=== PATIENT | male | born 1970 | race Two or more races ===

== ENCOUNTER 2016-12-22 13:03 | Emergency (ER) | payer OTHER, BC ==
[2016-12-22 13:08] VITALS: BP 148/89; PULSE 85; TEMP 98.2; BMI 28.2
[2016-12-22] MEDS ORDERED: IBUPROFEN 400 MG TABLET (FP) PO ONE ×2 (13:39→13:42)
--- NOTE | 2016-12-22 13:42 | PDOC ---
History of Present Illness - General Chief Complaint: Pain, Acute Stated Complaint: RT SHOULDER/ARM PAIN Time Seen by Provider: 12/22/16 13:23 History Source: Patient - History of Present Illness Occurred: reports: other Severity: reports: moderate Upper Extremity Pain Location: right: shoulder Past History - Past Medical History Allergies/Adverse Reactions: Allergies Allergy/AdvReac Type Severity Reaction Status Date / Time No Known Allergies Allergy Verified 12/22/16 13:06 Home Medications: Ambulatory Orders Unobtainable [Unobtainable] 12/22/16 Other medical history: DENIES. - Surgical History Abdominal Surgery: Yes Appendectomy: Yes - Suicide/Smoking/Psychosocial Hx Smoking History: Never smoked Hx Alcohol Use: No Drug/Substance Use Hx: No Substance Use Type: None Review of Systems - Review of Systems Constitutional: No: Chills, Fever Musculoskeletal: Yes: Joint Pain. No: Joint Swelling *Physical Exam - Vital Signs Last Vital Signs Temp Pulse Resp BP Pulse Ox 98.2 F 85 18 148/89 99 12/22/16 13:05 12/22/16 13:05 12/22/16 13:05 12/22/16 13:05 12/22/16 13:05 - Physical Exam General Appearance: Yes: Appropriately Dressed. No: Apparent Distress HEENT: positive: Normal Voice Neck: positive: Supple Respiratory/Chest: negative: Respiratory Distress Extremity: positive: Normal Inspection, Normal Range of Motion, Tender (to anterior R shoulder, no swelling, FROM, strength 5/5 b/l) Integumentary: positive: Dry, Warm Neurologic: positive: Fully Oriented, Alert, Normal Mood/Affect Medical Decision Making - Medical Decision Making 12/22/16 13:40 46-year-old male denies any past medical history here with right shoulder pain after heavy lifting at work several days ago. Cries pain is achy, constant and worse with movement. Has not taken anything for symptoms. See exam Shoulder strain No e/o serious injury at this time -dc w/ OTC pain meds -pmd f/u for persistent sxs *DC/Admit/Observation/Transfer Diagnosis at time of Disposition: Sprain of shoulder, right Qualifiers: Encounter type: initial encounter Shoulder sprain type: unspecified sprain Qualified Code(s): S43.401A - Unspecified sprain of right shoulder joint, initial encounter; S43.401A - Unspecified sprain of right shoulder joint, initial encounter - Discharge Dispostion Disposition: HOME Condition at time of disposition: Good - Patient Instructions Printed Discharge Instructions: DI for Shoulder Sprain Additional Instructions: Take 800mg motrin every 6 hrs for pain Please follow-up with your PMD if pain persists - Post Discharge Activity Forms/Work/School Notes: Back to Work
== END 2016-12-22 13:49 | disposition home or self-care (01) ==
LOC: SUPCPDRO 13:03 → JERFT 13:03
DX: S43.401A Unspecified sprain of right shoulder joint, initial encounter (principal); X50.0XXA Overexertion from strenuous movement or load, initial encounter; Y93.89 Activity, other specified; Y92.63 Factory as the place of occurrence of the external cause; Y99.0 Civilian activity done for income or pay
CPT/HCPCS: 99281-25

== ENCOUNTER 2017-06-10 10:54 | Emergency (ER) | payer OTHER ==
[2017-06-10 11:04] VITALS: BP 135/83; PULSE 98; TEMP 98.4; BMI 29.0
--- NOTE | 2017-06-10 11:43 | PDOC ---
History of Present Illness - General Chief Complaint: Pain Stated Complaint: LT SHOULDER PAIN Time Seen by Provider: 06/10/17 11:13 History Source: Patient Exam Limitations: No Limitations - History of Present Illness Initial Comments: 06/10/17 11:39 this is a 46yo man without significant PMH who presents to ED with left shoulder pain after trying to lift a locked roll away door. Patient states he "yanked" up on the door with his arms fully extended and felt a sharp pain to the front of his left shoulder. He rates pain 6/10 after taking Aleve. He denies striking his shoulder or falling onto the shoulder. Past History - Past Medical History Allergies/Adverse Reactions: Allergies Allergy/AdvReac Type Severity Reaction Status Date / Time No Known Allergies Allergy Verified 06/10/17 11:04 Home Medications: Ambulatory Orders NK [No Known Home Medication] 06/10/17 COPD: No - Surgical History Abdominal Surgery: Yes Appendectomy: Yes - Suicide/Smoking/Psychosocial Hx Smoking History: Never smoked Hx Alcohol Use: No Drug/Substance Use Hx: No Substance Use Type: None Review of Systems - Review of Systems Able to Perform ROS?: Yes Is the patient limited Serbian proficient: No Constitutional: No: Symptoms Reported HEENTM: No: Symptoms Reported Respiratory: No: Symptoms reported Cardiac (ROS): No: Symptoms Reported ABD/GI: No: Symptoms Reported : No: Symptoms Reported Musculoskeletal: Yes: See HPI Integumentary: No: Symptoms Reported Neurological: No: Symptoms reported *Physical Exam - Vital Signs Last Vital Signs Temp Pulse Resp BP Pulse Ox 98.4 F 98 H 18 135/83 98 06/10/17 11:00 06/10/17 11:00 06/10/17 11:00 06/10/17 11:00 06/10/17 11:00 - Physical Exam General Appearance: Yes: Appropriately Dressed. No: Apparent Distress HEENT: positive: Normal ENT Inspection Neck: positive: Trachea midline, Supple Respiratory/Chest: positive: Lungs Clear, Normal Breath Sounds. negative: Respiratory Distress, Accessory Muscle Use Cardiovascular: positive: Regular Rhythm, Regular Rate. negative: Murmur Gastrointestinal/Abdominal: positive: Normal Bowel Sounds, Soft. negative: Tender Musculoskeletal: positive: Normal Inspection. negative: Decreased Range of Motion Extremity: positive: Normal Inspection, Normal Range of Motion, Tender (to anterior capsule of left shoulder) Integumentary: positive: Normal Color, Dry, Warm Neurologic: positive: Fully Oriented, Alert, Normal Response, Motor Strength 5/ 5. negative: Numbness, Sensory Deficit ED Treatment Course - RADIOLOGY Radiology Studies Ordered: Category Date Time Status SHOULDER-LEFT [RAD] Stat Radiology 06/10/17 11:38 Ordered Medical Decision Making - Medical Decision Making 06/10/17 11:43 A/P: 46yo man with left shoulder pain TTP at anterior capsule of left shoulder Full passive ROM 5/5 sr account executive strength 2+ radial pulses cap refill <2sec xrays patient refusing pain medication at this time reassess 06/10/17 12:37 Xray as read by me: slight AC separation. No fracture present. Sling discharge *DC/Admit/Observation/Transfer Diagnosis at time of Disposition: Sprain of shoulder, left Qualifiers: Encounter type: initial encounter Shoulder sprain type: other part of shoulder region Qualified Code(s): S43.492A - Other sprain of left shoulder joint, initial encounter - Discharge Dispostion Disposition: HOME Condition at time of disposition: Stable Admit: No - Referrals Referrals: Dimas Johnston [Primary Care Provider] - Iron Monet MD [Staff Physician] - - Patient Instructions Printed Discharge Instructions: How to Use a Sling Additional Instructions: Take Tylenol or Motrin as needed for pain. Follow engineer process's instruction for dosage. Use sling at all times for the next 3 dyas. You have been given a recommendation for an orthopedist. Please call for an appointment for re-evaluation. Return to ER for weakness, numbness, tingling, discoloration of fingers or any other concerns. - Post Discharge Activity
== END 2017-06-10 12:52 | disposition home or self-care (01) ==
LOC: JERFT 10:54
DX: S43.492A Other sprain of left shoulder joint, initial encounter (principal); X50.0XXA Overexertion from strenuous movement or load, initial encounter; Y93.89 Activity, other specified; Y92.69 Other specified industrial and construction area as the place of occurrence of the external cause; Y99.0 Civilian activity done for income or pay
CPT/HCPCS: 73030-TC-LT-FY; 99281-25

== ENCOUNTER 2017-06-30 14:22 | Emergency (ER) | payer OTHER ==
--- NOTE | 2017-06-30 14:29 | PDOC ---
Rapid Medical Evaluation Chief Complaint: Injury Time Seen by Provider: 06/30/17 14:28 Medical Evaluation: Allergies Allergy/AdvReac Type Severity Reaction Status Date / Time No Known Allergies Allergy Verified 06/10/17 11:04 06/30/17 14:29 I have performed a brief in-person evaluation of this patient. The patient presents with a chief complaint of: left shoulder pain "i feel something stretching when i try to move the arm" Pertinent physical exam findings: well appearing, full ROM I have ordered the following: nothing The patient will proceed to the ED for further evaluation. Discharge Disposition - Referrals Referrals: Dimas Johnston [Primary Care Provider] - - Patient Instructions - Post Discharge Activity
[2017-06-30 14:33] VITALS: BP 128/76; PULSE 88; TEMP 98.2; BMI 29.0
--- NOTE | 2017-06-30 15:39 | PDOC ---
History of Present Illness - General Chief Complaint: Injury Stated Complaint: JOB INJURY Time Seen by Provider: 06/30/17 14:28 History Source: Patient Exam Limitations: No Limitations - History of Present Illness Initial Comments: 06/30/17 15:46 This a 46-year-old gentleman without significant past medical history who presents emergency Department with continued left shoulder pain status post accident at work. Patient was seen and evaluated here on 06/10 when he initially sustaining the injury. At that time he was moving a rollaway door when the door stuck causing an abrupt stop and movements causing pain in his left shoulder. At that time x-rays were negative patient was instructed to follow-up with an orthopedic surgeon. He states he tried to contact the orthopedic surgeon he was referred to but that surgeon did not take Worker's Comp. concerns. Patient was in contact with his Worker's Comp. office today who will call him back with the name of an orthopedic surgeon in the area. Upper Extremity Pain Location: left: shoulder Method of Injury: reports: other Past History - Past Medical History Allergies/Adverse Reactions: Allergies Allergy/AdvReac Type Severity Reaction Status Date / Time No Known Allergies Allergy Verified 06/30/17 14:29 Home Medications: Ambulatory Orders Methocarbamol [Robaxin -] 1,500 mg PO Q8H #30 tablet 06/30/17 COPD: No - Surgical History Abdominal Surgery: Yes Appendectomy: Yes - Suicide/Smoking/Psychosocial Hx Smoking History: Never smoked Have you smoked in the past 12 months: No Information on smoking cessation initiated: No Hx Alcohol Use: No Drug/Substance Use Hx: No Substance Use Type: None Review of Systems - Review of Systems Able to Perform ROS?: Yes Is the patient limited Burmese proficient: No Constitutional: No: Symptoms Reported HEENTM: No: Symptoms Reported Respiratory: No: Symptoms reported Cardiac (ROS): No: Symptoms Reported ABD/GI: No: Symptoms Reported : No: Symptoms Reported Musculoskeletal: Yes: See HPI Integumentary: No: Symptoms Reported Neurological: No: Symptoms reported Endocrine: No: Symptoms Reported Hematologic/Lymphatic: No: Symptoms Reported *Physical Exam - Vital Signs Last Vital Signs Temp Pulse Resp BP Pulse Ox 98.2 F 88 16 128/76 100 06/30/17 14:29 06/30/17 14:29 06/30/17 14:29 06/30/17 14:29 06/30/17 14:29 - Physical Exam General Appearance: Yes: Appropriately Dressed. No: Apparent Distress HEENT: positive: Normal ENT Inspection Neck: positive: Trachea midline, Supple, Other (Palpable muscle spasm to the left sternocleidomastoid and left trapezius) Respiratory/Chest: positive: Lungs Clear, Normal Breath Sounds. negative: Respiratory Distress, Accessory Muscle Use Cardiovascular: positive: Regular Rhythm, Regular Rate. negative: Murmur Gastrointestinal/Abdominal: positive: Normal Bowel Sounds, Soft. negative: Tender Musculoskeletal: positive: Normal Inspection, Muscle Spasm (Left sternoclavicular mastoid and left trapezius). negative: CVA Tenderness Extremity: positive: Normal Inspection. negative: Normal Range of Motion ( Decreased range of motion with adduction) Integumentary: positive: Normal Color, Dry, Warm Neurologic: positive: Alert, Normal Response Medical Decision Making - Medical Decision Making 06/30/17 15:48 A/P: 46-year-old male with continued left shoulder pain status post injury at work Palpable muscle spasm in the left sternocleidomastoid and left trapezius. Decreased range of motion with right lateral rotation of the neck Increased pain with right lateral rotation of the neck Full left lateral rotation noted without pain Full extension and flexion of neck noted without pain Adduction of left shoulder decreased to less than 90 Given palpable muscle spasms I will treat the patient with Robaxin as an outpatient. Patient instructed not to operate heavy machinery or drive while taking this medication. Patient instructed to call his Worker's Compensation insurance for referral for orthopedic surgeon. Patient verbalizes understanding of discharge instructions. 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 Take Robaxin 1500 mg 3 times a day as needed for pain. Follow-up with her primary doctor or a primary doctor who accepts Worker's Comp. for continued evaluation of this pain. Return to emergency department for any concerns - Post Discharge Activity Forms/Work/School Notes: Back to Work
== END 2017-06-30 15:43 | disposition home or self-care (01) ==
LOC: JERFT 14:22
DX: M62.838 Other muscle spasm (principal); X50.0XXD Overexertion from strenuous movement or load, subsequent encounter
CPT/HCPCS: 99281-25

== ENCOUNTER 2017-07-14 14:38 | Emergency (ER) | payer OTHER ==
[2017-07-14 14:55] VITALS: BP 127/72; PULSE 83; TEMP 98.2; BMI 29.0
--- NOTE | 2017-07-14 15:44 | PDOC ---
History of Present Illness - General Chief Complaint: Injury Stated Complaint: LT ARM PAIN Time Seen by Provider: 07/14/17 15:01 - History of Present Illness Initial Comments: 46 room now presents for evaluation for left shoulder pain. He states while at work about 3 weeks ago he was pulling down the door of the truck closing it injuring his left shoulder points to the anterior lateral aspect of the left upper arm as the area of his discomfort is describes this pain as achy exacerbated with motion relieved with rest free of radiation he does have a history of a prior shoulder problem which is similar in etiology and she will but never followed up with orthopedics as advised. 07/14/17 15:39 Past History - Past Medical History Allergies/Adverse Reactions: Allergies Allergy/AdvReac Type Severity Reaction Status Date / Time No Known Allergies Allergy Verified 07/14/17 14:51 Home Medications: Ambulatory Orders Methocarbamol [Robaxin -] 1,500 mg PO Q8H #30 tablet 06/30/17 COPD: No Other medical history: DENIES. - Surgical History Abdominal Surgery: Yes Appendectomy: Yes - Suicide/Smoking/Psychosocial Hx Smoking History: Never smoked Have you smoked in the past 12 months: No Hx Alcohol Use: No Drug/Substance Use Hx: No Substance Use Type: None Review of Systems - Review of Systems Comments:: 07/14/17 15:40 GENERAL/CONSTITUTIONAL: [No fever or chills. No weakness. No weight change.] HEAD, EYES, EARS, NOSE AND THROAT: [No change in vision. No ear pain or discharge. No sore throat.] CARDIOVASCULAR: [No chest pain or shortness of breath.] RESPIRATORY: [No cough, wheezing, or hemoptysis.] GASTROINTESTINAL: [No nausea, vomiting, diarrhea or constipation. No rectal bleeding.] GENITOURINARY: [No dysuria, frequency, or change in urination.] MUSCULOSKELETAL: [+ L shoulder pain no other joint or muscle swelling or pain. No neck or back pain.] SKIN AND BREASTS: [No rash or easy bruising.] NEUROLOGIC: [No headache, vertigo, loss of consciousness, or loss of sensation.] PSYCHIATRIC: [No depression or anxiety.] ENDOCRINE: [No increased thirst. No abnormal weight change.] HEMATOLOGIC/LYMPHATIC: [No anemia, easy bleeding, or history of blood clots.] ALLERGIC/IMMUNOLOGIC: [No hives or skin allergy. No latex allergy.] *Physical Exam - Vital Signs Last Vital Signs Temp Pulse Resp BP Pulse Ox 98.2 F 83 19 127/72 99 07/14/17 14:51 07/14/17 14:51 07/14/17 14:51 07/14/17 14:51 07/14/17 14:51 - Physical Exam Comments: Shoulder skin color and temperature are normal. There is full range of motion WITH PAIN 5 out of 5 strength. 5 out of 5 strength supraspinatus isolation. POSITIVE impingement maneuvers. No evidence of instability. Normal cervical spine exam with negative Spurling maneuver. 07/14/17 15:40 ED Treatment Course - RADIOLOGY Radiology Studies Ordered: Category Date Time Status SHOULDER-LEFT [RAD] Stat Radiology 07/14/17 15:38 Ordered Medical Decision Making - Medical Decision Making Shoulder x-ray shows no evidence of fracture or trauma there is mild to moderate before meals arthritis 07/14/17 16:05 *DC/Admit/Observation/Transfer Diagnosis at time of Disposition: Shoulder impingement syndrome - Discharge Dispostion Disposition: HOME Condition at time of disposition: Stable Decision to Admit order: No - Referrals Referrals: Dimas Johnston [Primary Care Provider] - Jesus White MD [Staff Physician] - - Patient Instructions Printed Discharge Instructions: Shoulder Tendinopathy, DI for Shoulder Tendinopathy - Post Discharge Activity
== END 2017-07-14 16:14 | disposition home or self-care (01) ==
LOC: JERFT 14:38
DX: M25.812 Other specified joint disorders, left shoulder (principal); X50.0XXA Overexertion from strenuous movement or load, initial encounter; Y93.89 Activity, other specified; Y92.69 Other specified industrial and construction area as the place of occurrence of the external cause; Y99.0 Civilian activity done for income or pay
CPT/HCPCS: 73030-TC-LT-FY; 99281-25

== ENCOUNTER 2018-01-17 13:48 | Emergency (ER) | payer BC, OTHER ==
[2018-01-17 14:24] VITALS: TEMP 98.6; BMI 29.0
--- NOTE | 2018-01-17 14:32 | PDOC ---
History of Present Illness - General Chief Complaint: Pain, Acute Stated Complaint: ABD PAIN, NAUSEA Time Seen by Provider: 01/17/18 14:31 History Source: Patient Exam Limitations: No Limitations - History of Present Illness Initial Comments: 01/17/18 14:52 This is a 47 year old male with no known medical history except appendectomy, who presents with nausea, NBNB vomiting and diarrhea and severe abdominal pain x1 day after eating [place] food. RUQ sharp pain, non radiating, 10/10. Endores tremors. Denies fever, sob, chest pain, dysuria, hematuria, diaz, sick contacts. PMHx: appendicitis PSHx: appendectomy Social hx: denies alcohol, tobacco drug use. NKDA Past History - Past Medical History Allergies/Adverse Reactions: Allergies Allergy/AdvReac Type Severity Reaction Status Date / Time No Known Allergies Allergy Verified 01/17/18 14:20 Home Medications: Ambulatory Orders Ciprofloxacin [Cipro -] 500 mg PO Q12H 7 Days #14 tablet 01/17/18 Oxycodone HCl/Acetaminophen [Percocet 5-325 mg Tablet] 1 tab PO Q6H PRN #12 tablet MDD 4 tabs 01/17/18 metroNIDAZOLE [Flagyl -] 500 mg PO Q8H 7 Days #28 tablet 01/17/18 COPD: No - Surgical History Abdominal Surgery: Yes Appendectomy: Yes - Suicide/Smoking/Psychosocial Hx Smoking History: Never smoked Have you smoked in the past 12 months: No Hx Alcohol Use: No Drug/Substance Use Hx: No Substance Use Type: None Review of Systems - Review of Systems Able to Perform ROS?: Yes Is the patient limited Puerto Rican proficient: No Constitutional: Yes: Chills, Loss of Appetite. No: Fever HEENTM: No: Blurred Vision, Nose Congestion, Throat Swelling, Difficulty Swallowing Respiratory: No: Cough, Orthopnea, Shortness of Breath, SOB with Exertion Cardiac (ROS): No: Chest Pain, Edema, Irregular Heart Rate, Lightheadedness ABD/GI: Yes: Diarrhea, Nausea, Poor Appetite, Poor Fluid Intake, Vomiting, Abdominal cramping, Other (RUQ pain). No: Abdominal Distended, Abd. Pain w/ defecation : No: Burning, Dysuria, Discharge Musculoskeletal: No: Back Pain Integumentary: No: Bruising, Flushing Neurological: No: Headache, Numbness Endocrine: No: Excessive Sweating, Flushing *Physical Exam - Vital Signs Last Vital Signs Temp Pulse Resp BP Pulse Ox 98.6 F 64 20 140/92 98 01/17/18 14:22 01/17/18 14:22 01/17/18 14:22 01/17/18 14:22 01/17/18 14:22 - Physical Exam General Appearance: Yes: Appropriately Dressed HEENT: positive: Pharynx Normal, Other (dry mucus membranes) Respiratory/Chest: positive: Lungs Clear, Normal Breath Sounds. negative: Chest Tender Cardiovascular: positive: Regular Rhythm, Regular Rate, S1, S2 Gastrointestinal/Abdominal: positive: Normal Bowel Sounds, Tender (severe RUQ tendernes to palpation; Neri +), Tenderness Lymphatic: negative: Adenopathy Musculoskeletal: negative: CVA Tenderness Extremity: positive: Normal Inspection Neurologic: positive: Fully Oriented, Normal Mood/Affect ED Treatment Course - LABORATORY CBC & Chemistry Diagram: 01/17/18 14:42 01/17/18 14:42 Medical Decision Making - Medical Decision Making 01/17/18 15:13 This is a 47 year old male with hx of appendectomy, who presents with N, V, D, RUQ pain after eating [place] food last night. R/o acute pathology including acute cholecystitis, pancreatitis, diverticulitis, liver abnormalities, vs acute viral gastroenteritis. #n/v/d/abdominal pain: -cbc, cmp, lipase -abdominal ultrasound 01/17/18 18:19 - 01/17/18 18:21 Abdominal ultrasound: An approximately 1.7 cm calculus is seen in the region of the gallbladder neck. There is mild diffuse gallbladder wall thickening. No pericholecystic fluid is noted. The gallbladder appears mildly overdistended. The cardiac cath lab radiology technologist reports a positive sonographic Neri sign. There is diffuse fatty infiltration of the liver. The liver appears borderline in overall size. No obvious mass lesion is noted. The common bile duct diameter demonstrates no discrete abnormality measuring 0.5 cm. No gross intraductal calculus is noted within the limitations of sonography. No free intraperitoneal fluid is identified. The pancreas could not be visualized due to obscuring bowel gas. There is no right hydronephrosis. The right kidney demonstrates no obvious sonographic abnormality. Impression: Cholelithiasis is noted with associated mild diffuse wall thickening and mild overdistention - ? acute cholecystitis. The cardiac cath lab radiology technologist reports a positive sonographic Neri sign. Additional imaging as clinically indicated. There is no definite biliary tract dilatation. Diffuse hepatic steatosis. 01/17/18 18:22 -Acute cholecystitis: -patient does not want to be admitted to hospital -will send home on antibiotics levo/flagyl and pain medication -made appt with Dr. Hanson for follow up on 01/19/18 at 10am. Also discussed f/ u with primary. -advise to return to the hospital if any worsening of symptoms; including fever , intractable vomiting, worsening pain *DC/Admit/Observation/Transfer Diagnosis at time of Disposition: Acute cholecystitis - Discharge Dispostion Disposition: HOME Condition at time of disposition: Improved Decision to Admit order: No - Referrals Referrals: Dimas Johnston [Primary Care Provider] - Jesus Hanson MD [Staff Physician] - - Patient Instructions Printed Discharge Instructions: Gallstones Additional Instructions: Mr. Davis, you have been diagnosed with acute cholecystitis, which is an inflammation of your gallbladder. YOu also have a large stone in your gallbladder. Please take the prescribed medications as directed. We also made an appointment for you with a surgeon to be evaluated, on Wednesday at 10am. If you experience any worsening of symptoms, including fever, chills, intractable vomiting, worsening abdominal pain, please return to the emergency room. Please follow up with your primary as soon as possible as well. - Post Discharge Activity
[2018-01-17] MEDS ORDERED: ONDANSETRON 4 MG/2 ML VIAL IVPB ONE (14:40)
[2018-01-17] MEDS ORDERED: SODIUM CHLORIDE 1,000 ML IV STA (14:41)
[2018-01-17] MEDS ORDERED: ONDANSETRON 4 MG/2 ML VIAL ONE (14:49)
[2018-01-17] MEDS ORDERED: morphine CARPU-JECT 4 MG/1 ML DISP.SYRIN IVPUSH ONE ×2 (14:50→16:28)
[2018-01-17] MEDS ORDERED: MORPHINE SULFATE 2 MG/ML VIAL ONE ×2 (14:59→17:44)
[2018-01-17 15:00] LABS: BASO % 0.7 % (0-2.0); EOS % 0.1 % (0-4.5); HEMATOCRIT 42.7 % (35.4-49); HEMOGLOBIN 14.5 GM/dL (11.7-16.9); LYMPH % 9.8 % (8-40); MCH 31.1 pg (25.7-33.7); MCHC 33.9 g/dl (32.0-35.9); MEAN CELL VOLUME 91.9 fl (80-96); MONO % 4.8 % (3.8-10.2); NEUT % 84.6 % (42.8-82.8); PLATELET COUNT 352 K/MM3 (134-434); RBC 4.64 M/mm3 (4.00-5.60); RDW 12.4 % (11.9-15.9); WHITE BLOOD COUNT 18.8 K/mm3 (4.0-10.0)
[2018-01-17 15:30] LABS: ALBUMIN 3.6 g/dl (3.4-5.0); ALK PHOS 79 U/L (45-117); ANION GAP 7 MMOL/L (8-16); BILIRUBIN,TOTAL 0.5 mg/dL (0.2-1); BLOOD UREA NITROGEN 17 mg/dL (7-18); CALCIUM 8.9 mg/dL (8.5-10.1); CHLORIDE 104 mmol/L (98-107); CO2 27 mmol/L (21-32); CREATININE 0.8 mg/dL (0.55-1.3); GLUCOSE,RANDOM 143 mg/dL (74-106); LIPASE 104 U/L (73-393); POTASSIUM 3.5 mmol/L (3.5-5.1); SGOT/AST 10 U/L (15-37); SGPT/ALT 17 U/L (13-61); SODIUM 138 mmol/L (136-145); TOT PROT 7.1 g/dl (6.4-8.2)
--- NOTE | 2018-01-17 16:26 | PDOC ---
Attending Attestation - HPI HPI: 01/17/18 16:29 This is a 47 year old male with a medical history significant for appendectomy, who presents with nausea, vomiting, diarrhea and RUQ abdominal pain since eating Lithuanian food last night. He denies radiation of pain. He denies blood in the emesis. PSHx: appendectomy Social hx: denies alcohol, tobacco drug use. NKDA - Physicial Exam PE: 01/17/18 16:29 Vitals: Triage vital signs reviewed General Appearance: No acute distress, well nourished, well developed Head: Atraumatic Eyes: Pupils equal reactive round, extraocular movement intact Neck: Supple; No nuchal rigidity Chest Wall: Nontender Cardiac: Regular rate and rhythm, no murmurs, no rubs, no gallops Lungs: Clear to auscultation bilateral, good air movement bilaterally Abdomen: (+) RUQ mildly ttp. Soft, nondistended, normal bowel sounds, Extremities: Full range of motion to all extremities, no cyanosis, clubbing, or edema Skin: Warm and dry, no rashes or lesions, no rash, no petechiae Neuro: AOX3; Cranial Nerves 2-12 grossly intact, Strength intact to all extremities, Sensation intact to all extremities, gait normal - Medical Decision Making 01/17/18 16:30 Documentation prepared by Mariann Kelly, acting as site medical director for Ronny Rios MD, <Mariann Kelly - Last Filed: 01/17/18 16:29> - Resident Resident Name: Trixie Donis - ED Attending Attestation I have performed the following: I have examined & evaluated the patient, The case was reviewed & discussed with the resident, I agree w/resident's findings & plan, Exceptions are as noted - Medical Decision Making Moderate to severe right upper quadrant pain. Labs ultrasound pending Dr. Dumont to follow-up results and reassess. <Ronny Rios - Last Filed: 01/17/18 16:38>
[2018-01-17 19:41] VITALS: BP 134/76; PULSE 65
== END 2018-01-17 19:27 | disposition home or self-care (01) ==
LOC: JER 13:48
PROC: 3E033NZ Introduction of Analgesics, Hypnotics, Sedatives into Peripheral Vein, Percutaneous Approach (ICD-10-PCS; principal; 2018-01-17)
PROC: 3E033NZ Introduction of Analgesics, Hypnotics, Sedatives into Peripheral Vein, Percutaneous Approach (ICD-10-PCS; 2018-01-17)
PROC: 3E033GC Introduction of Other Therapeutic Substance into Peripheral Vein, Percutaneous Approach (ICD-10-PCS; 2018-01-17)
DX: K80.00 Calculus of gallbladder with acute cholecystitis without obstruction (principal)
CPT/HCPCS: 36415; 76705-TC; 80053; 83690; 85025; 99283-25; J7030

== ENCOUNTER 2018-01-21 06:31 | Inpatient (IN) | payer BC ==
[2018-01-20 09:03] VITALS: BMI 29.0
--- NOTE | 2018-01-21 07:47 | HP ---
History & Physical Update - History History: No Change - Physical Physical: No Change - Assessment Assessment: No Change - Plan Plan: No Change
[2018-01-21] MEDS ORDERED: fentaNYL CITRATE 250 MCG/5 ML VIAL ONE (08:04)
[2018-01-21] MEDS ORDERED: MIDAZOLAM HCL 2 MG/2 ML SINGLE DOSE VIAL ONE ×2 (08:05)
[2018-01-21] MEDS ORDERED: PROPOFOL 20 ML ONE (08:11)
[2018-01-21] MEDS ORDERED: ROCURONIUM BROMIDE 50 MG/5 ML VIAL ONE ×2 (08:12→09:46)
[2018-01-21] MEDS ORDERED: BUPIVACAINE HCL/PF 0.5% (5MG/ML) 10 ML VIAL ONE (08:21)
[2018-01-21] MEDS ORDERED: ceFAZolin SODIUM 1 GM VIAL ONE (08:28)
[2018-01-21] MEDS ORDERED: DEXAMETHASONE SOD PHOSPHATE 4 MG/1 ML VIAL ONE (08:28)
[2018-01-21] MEDS ORDERED: ceFAZolin SODIUM 1 GM VIAL IVPB ONE (08:30)
[2018-01-21] MEDS ORDERED: BENZOIN TINCTURE SWABSTICK TP ONE (10:57)
[2018-01-21] MEDS ORDERED: ONDANSETRON 4 MG/2 ML VIAL IVPUSH PRN ×2 (11:30)
[2018-01-21] MEDS ORDERED: ACETAMINOPHEN 325 MG TABLET (FP) PO PRN (11:30)
[2018-01-21] MEDS ORDERED: oxyCODONE HCL 5 MG TABLET PO PRN ×2 (11:30)
--- NOTE | 2018-01-21 11:59 | OP ---
Operative Note - Note: Operative Date: 01/21/18 Pre-Operative Diagnosis: acute cholecystitis, cholelithiasis Operation: Laparoscopic cholecystectomy Post-Operative Diagnosis: Same as Pre-op Surgeon: Jesus Hanson Drupal Architect: Hillary Celis Anesthesiologist/JOB MOLDER: Reji Adam Anesthesia: General Specimens Removed: gallbladder Estimated Blood Loss (mls): 30 Drains & Tubes with Location: blanc RLQ Fluid Volume Replaced (mls): 1,800 Operative Report Dictated: Yes
[2018-01-21] MEDS: LACTATED RINGERS SOLUTION 1,000 ML IV SCH ×2 (12:00→20:10)
--- NOTE | 2018-01-21 12:00 | SURG ---
Surgery Anodiser Note Anodiser: Hillary Celis PA-C Date of Service: 01/21/18 Diagnosis: Acute cholecystitis, Cholelithiasis Procedure: laparoscopic cholecystectomy I was present for the entirety of the operative procedure. For further detail, please refer to operative report. Visit type - Case Type Case Type: Scheduled - Emergency Emergency Visit: No - New patient This patient is new to me today: Yes Date on this admission: 01/21/18
[2018-01-21] MEDS: HYDROmorphone HCl 2 MG/ML VIAL ONE ×3 (12:18→13:00)
[2018-01-21 12:39] LABS: BASO % 0.4 % (0-2.0); EOS % 0.4 % (0-4.5); HEMOGLOBIN 13.5 GM/dL (11.7-16.9); LYMPH % 12.8 % (8-40); MCH 31.3 pg (25.7-33.7); MCHC 33.6 g/dl (32.0-35.9); MEAN PLT VOLUME 7.5 fl (7.5-11.1); MONO % 1.3 % (3.8-10.2); NEUT % 85.1 % (42.8-82.8); PLATELET COUNT 335 K/MM3 (134-434); RDW 12.8 % (11.9-15.9); WHITE BLOOD COUNT 15.2 K/mm3 (4.0-10.0)
[2018-01-21] MEDS ORDERED: ACETAMINOPHEN 1000 MG/100 ML VIAL (NON FORMULARY) IVPB ONE (13:27)
[2018-01-21] MEDS ORDERED: ACETAMINOPHEN WITH CODEINE 300MG/30MG TABLET PO PRN (13:28)
[2018-01-21] MEDS ORDERED: HYDROmorphone HCL CARPU-JECT 2 MG/1 ML DISP.SYRIN IVPUSH ONE (14:22)
[2018-01-21] MEDS: HEPARIN NA (PORCINE) 5,000 UNITS/ML 1ML VIAL SQ SCH (21:15)
[2018-01-22] MEDS: LACTATED RINGERS SOLUTION 1,000 ML IV SCH (04:03)
[2018-01-22] MEDS: HEPARIN NA (PORCINE) 5,000 UNITS/ML 1ML VIAL SQ SCH ×3 (05:42→22:00)
[2018-01-22 07:50] LABS: BASO % 0.6 % (0-2.0); EOS % 0.9 % (0-4.5); HEMATOCRIT 35.9 % (35.4-49); LYMPH % 33.7 % (8-40); MCH 30.9 pg (25.7-33.7); MCHC 33.5 g/dl (32.0-35.9); MEAN CELL VOLUME 92.1 fl (80-96); MEAN PLT VOLUME 7.5 fl (7.5-11.1); MONO % 5.3 % (3.8-10.2); NEUT % 59.5 % (42.8-82.8); PLATELET COUNT 307 K/MM3 (134-434); RDW 12.3 % (11.9-15.9); WHITE BLOOD COUNT 11.1 K/mm3 (4.0-10.0)
[2018-01-22 08:24] LABS: ANION GAP 11 MMOL/L (8-16); BLOOD UREA NITROGEN 7 mg/dL (7-18); CALCIUM 7.9 mg/dL (8.5-10.1); CHLORIDE 104 mmol/L (98-107); CO2 26 mmol/L (21-32); CREATININE 0.7 mg/dL (0.55-1.3); GLUCOSE,RANDOM 83 mg/dL (74-106); POTASSIUM 3.4 mmol/L (3.5-5.1); SODIUM 141 mmol/L (136-145)
--- NOTE | 2018-01-22 08:45 | PN ---
Progress Note (short form) - Note Progress Note: Attending Surgeon POD #1 He was admitted because he was found to have marked acute cholecystitis which was not anticipated pre-op He has voided and tolerated liquids VSS AF abdo-soft; flat and non tender e/f port sites WBC trending down FABIÁN serosangunous IMP: doing well PLAN: OOB; advance diet; check labs; anticipate d/c 01/23/18. Jesus Hanson MD FACS
[2018-01-22] MEDS ORDERED: LACTATED RINGERS SOLUTION 1,000 ML IV SCH (08:46)
--- NOTE | 2018-01-22 09:43 | PN ---
Progress Note, Physician Chief Complaint: day 1 s/p lap nydia - Current Medication List Current Medications: Active Medications Acetaminophen/Codeine Phosphate (Tylenol # 3 -) 1 tab PO Q6H PRN PRN Reason: PAIN LEVEL 1-5 Last Admin: 01/22/18 00:27 Dose: 1 tab Heparin Sodium (Porcine) (Heparin -) 5,000 unit SQ TID REJI Last Admin: 01/22/18 05:42 Dose: Not Given Lactated Ringer's (Lactated Ringers Solution) 1,000 mls @ 75 mls/hr IV [facility] Ondansetron HCl (Zofran Injection) 4 mg IVPUSH Q6H PRN PRN Reason: NAUSEA AND/OR VOMITING - Objective Vital Signs: Vital Signs Temperature 98 F 01/21/18 22:30 Pulse Rate 59 L 01/22/18 06:29 Respiratory Rate 20 01/22/18 06:29 Blood Pressure 96/57 L 01/22/18 06:29 O2 Sat by Pulse Oximetry (%) 95 01/21/18 20:43 Labs: CBC, BMP 01/22/18 06:30 01/22/18 06:30 Assessment/Plan Doing well after GA for lap nydia. Pt feels fine, in minimal pain, able to ambulate. No apparent anesthetic issues/complications.
[2018-01-22 18:37] VITALS: TEMP 98.6
[2018-01-23 06:08] VITALS: BP 113/61; PULSE 67
[2018-01-23] MEDS: HEPARIN NA (PORCINE) 5,000 UNITS/ML 1ML VIAL SQ SCH (06:30)
[2018-01-23 07:41] LABS: BASO % 0.8 % (0-2.0); EOS % 2.6 % (0-4.5); HEMATOCRIT 38.4 % (35.4-49); HEMOGLOBIN 12.7 GM/dL (11.7-16.9); LYMPH % 37.1 % (8-40); MCH 30.7 pg (25.7-33.7); MCHC 33.1 g/dl (32.0-35.9); MEAN CELL VOLUME 92.7 fl (80-96); MEAN PLT VOLUME 7.4 fl (7.5-11.1); MONO % 6.2 % (3.8-10.2); NEUT % 53.3 % (42.8-82.8); PLATELET COUNT 316 K/MM3 (134-434); RBC 4.14 M/mm3 (4.00-5.60); RDW 12.6 % (11.9-15.9)
[2018-01-23 08:27] LABS: ALBUMIN 2.7 g/dl (3.4-5.0); ALK PHOS 59 U/L (45-117); ANION GAP 5 MMOL/L (8-16); BILIRUBIN,TOTAL 0.4 mg/dL (0.2-1); BLOOD UREA NITROGEN 8 mg/dL (7-18); CALCIUM 8.3 mg/dL (8.5-10.1); CHLORIDE 105 mmol/L (98-107); CO2 29 mmol/L (21-32); CREATININE 0.7 mg/dL (0.55-1.3); GLUCOSE,RANDOM 96 mg/dL (74-106); POTASSIUM 3.4 mmol/L (3.5-5.1); SGOT/AST 15 U/L (15-37); SGPT/ALT 22 U/L (13-61); SODIUM 139 mmol/L (136-145); TOT PROT 5.8 g/dl (6.4-8.2)
--- NOTE | 2018-01-23 09:57 | PN ---
Progress Note (short form) - Note Progress Note: Attending Surgeon POD #2 No c/o; tolerating diet VSS AF abdo-soft; flat and non tender; port site dressings c/d/i; FABIÁN minimal serosanguinous WBC-nl LFT's-nl IMP: doing well PLAN: drain removed; d/c to office f/u; instructions given. Jesus Hanson MD FACS
--- NOTE | 2018-01-24 11:35 | OP ---
DATE OF OPERATION: 01/21/2018 PREOPERATIVE DIAGNOSIS: Chronic cholecystitis, cholelithiasis. PREOPERATIVE DIAGNOSIS: Chronic cholecystitis, cholelithiasis. SURGEON: Jesus Hanson MD FIBERGLASS GRINDER: Hillary Celis PA-C ANESTHESIA: General. OPERATIVE FINDINGS: Acute cholecystitis and cholelithiasis. The rest of the findings were unremarkable. PROCEDURE: Laparoscopic cholecystectomy. DESCRIPTION OF PROCEDURE: The patient was placed on the operating table in the supine position and after the induction of general anesthesia the patient's abdomen was prepped with ChloraPrep and draped in sterile fashion. A timeout was taken , and pneumoperitoneum established above the umbilicus using a Veress needle. Once 15 mmHg of pressure were obtained, a 5-mm port was placed at the umbilicus and additional lateral 5-mm ports and a subxiphoid 12-mm port. Laparoscopy was carried out and the previously noted findings were observed. Dissection was begun at the neck of the gallbladder where the peritoneum was opened medially and laterally using blunt dissection and electrocautery. The cystic duct was identified coursing from the neck of the gallbladder towards the common bile duct and it was dissected using blunt dissection proximally and distally for length. Similarly, the artery was identified and dissected proximally and distally for length. A critical view of safety was taken and then the duct and the artery were clipped twice proximally and twice distally with large hemoclips. The duct and artery were then serially divided using Endoshears. Hemostasis was checked for and noted to be good and then the gallbladder was removed from the liver bed in a retrograde fashion using electrocautery. Prior to removal from the edge of the liver, hemostasis in the liver bed was again checked for and noted to be good and then the gallbladder removed from the edge of the liver, placed in an EndoCatch , and brought out through the subxiphoid port. Pneumoperitoneum was reestablished. Copious irrigation was carried out with saline. Hemostasis was verified again. A 10-mm Henrik-Limon drain was placed in the right hepatorenal fossa and brought out through 1 of the 5-mm ports and secured to the skin with 2-0 silk suture. All port sites were removed under laparoscopic vision without evidence of bleeding from the port sites. The port sites were infiltrated with 0.5% Marcaine and the skin edges reapproximated with 4-0 Biosyn in a subcuticular continuous fashion. Steri-Strips and Band-Aid dressings were placed. The drain was connected to bulb suction and then the patient aroused from general anesthesia and transferred to the postanesthesia care unit in stable condition, awake and alert. ESTIMATED BLOOD LOSS: 30 mL. REPLACEMENT: Crystalloid. DRAINS: One 10-mm Henrik-Limon. SPECIMEN: Gallbladder and contents to Pathology. I, Jesus Hanson, was physically present in the operating room from the time the patient was placed on the operating table until he was transferred to the postanesthesia care unit in [place]. MD PEDRO Myers/[id number] MTDD
--- NOTE | 2018-01-24 17:33 | PATH ---
Surgical Pathology Report Patient Name: VIRGINIE YANG Med. Rec. #: [id number] /Age/Gender: 1970 (Age: 47) / M Account: [id number] Location: [facility] MED/SURG Taken: 01/20/2018 Received: 01/21/2018 Reported: 01/24/2018 Physicians: Jesus Hanson MD Specimen(s) Received GALLBLADDER Clinical History Acute cholecystitis Final Diagnosis GALLBLADDER, LAPAROSCOPIC CHOLECYSTECTOMY: ACUTE AND CHRONIC HEMORRHAGIC CHOLECYSTITIS WITH CHOLELITHIASIS. Electronically Signed Diana Varela M.D. Gross Description Received in formalin, labeled "gallbladder," is a 7.0 x 3.0 x 2.4 cm. gallbladder with a 0.2 cm. in length portion of cystic duct attached. The outer surface is agustin-pink with two large defects and varies from smooth to shaggy. The lumen contains red blood clot. There is a 2.2 cm greatest dimension yellow-green, ovoid cholelith separately received within the same container. The mucosa is hyperemic. The wall of the gallbladder ranges from 0.1-0.6 cm. in thickness. [employer]otive [employer] Mechanic sections are submitted in one cassette. 01/21/2018 saudi01/21/2018
== END 2018-01-23 13:15 | disposition home or self-care (01) | DRG 419 ==
LOC: JASU-SURG 06:31 → JSAMEDAYSX 11:22 → J8W 16:30
PROVIDERS: ADMIT Surgery; ATTEND Surgery
PROC: 0FT44ZZ Resection of Gallbladder, Percutaneous Endoscopic Approach (ICD-10-PCS; principal; 2018-01-21 08:00)
DX: K80.00 Calculus of gallbladder with acute cholecystitis without obstruction (principal)
CPT/HCPCS: 36415; 80048; 80053; 81003; 85025; 85610; 88304-TC; 94760; J0131; J1644